=== PATIENT | male | born 1945 | race Caucasian/White ===

== ENCOUNTER 2017-08-19 09:39 | Emergency (ER) | payer OTHER ==
[~2017-08-19] VITALS: Ht 167.6 cm; Wt 94.6 kg
[2017-08-19 09:45] VITALS: BP 156/82
== END 2017-08-19 11:19 | disposition home or self-care (01) ==
LOC: ED 10:37
DX: K02.9 Dental caries, unspecified (principal); I10 Essential (primary) hypertension; E11.9 Type 2 diabetes mellitus without complications
CPT/HCPCS: 82962; 99283